=== PATIENT | female | born 1930 | race Caucasian/White ===

== ENCOUNTER 2016-09-27 17:19 | Inpatient (IN) | payer MEDICARE ==
[~2016-09-27] VITALS: Ht 162.6 cm; Wt 56.4 kg
[2016-09-27] MEDS ORDERED: SODIUM CHLORIDE 0.9% 1,000 ML ONE (18:43)
[2016-09-27] MEDS ORDERED: ACETAMINOPHEN 325 MG TAB PO PRN (21:05)
[2016-09-27] MEDS ORDERED: MORPHINE 4 MG/ML SYR IV PRN (21:05)
[2016-09-27] MEDS ORDERED: ALU/MAG/SIM 30 ML UDC PO PRN (21:05)
[2016-09-27] MEDS ORDERED: BISACODYL EC 5 MG TAB PO PRN (21:05)
[2016-09-27] MEDS ORDERED: MAG HYDROX 30 ML UDC PO PRN (21:05)
[2016-09-27] MEDS ORDERED: SALINE FLUSH 10 ML FLUSH PRN (21:05)
[2016-09-27] MEDS ORDERED: AZITHROMYCIN 500 MG VIAL IV ONE (21:16)
[2016-09-27] MEDS ORDERED: SODIUM CHLORIDE 0.9% 250 ML IV ONE (21:17)
[2016-09-27] MEDS ORDERED: CEFTRIAXONE 1 GM VIAL ONE (21:17)
[2016-09-27] MEDS ORDERED: SODIUM CHLORIDE 0.9% 100 ML IV ONE (21:17)
[2016-09-27 22:35] VITALS: BP_SYST 119; RESP 18; TEMP 97.6; BMI 21.3
[2016-09-27] MEDS: ONDANSETRON 4 MG VIAL IV PRN (22:39)
[2016-09-27] MEDS: SODIUM CHLORIDE 0.9% 1,000 ML IV SCH (22:46)
[2016-09-27] MEDS: LEVOFLOXACIN 750 MG/150 ML 150 ML IV SCH (23:50)
[2016-09-27 23:59] VITALS: RESP 18
[2016-09-28 03:40] VITALS: BP_SYST 100; RESP 16; TEMP 97.8
[2016-09-28] MEDS: ONDANSETRON 4 MG VIAL IV PRN ×2 (04:34→10:39)
[2016-09-28] MEDS: SODIUM CHLORIDE 0.9% FLUSH BAG 500 ML IV SCH ×2 (05:08)
[2016-09-28] MEDS: SALINE FLUSH 10 ML FLUSH SCH ×2 (08:00→20:00)
[2016-09-28] MEDS: ENOXAPARIN 40 MG/0.4 ML SYR SUBQ SCH (08:07)
[2016-09-28] MEDS: FAMOTIDINE 20 MG INJ IV SCH ×2 (08:07→20:40)
[2016-09-28] MEDS: METOPROLOL TART 25 MG TAB PO SCH (11:10)
[2016-09-28 11:58] VITALS: BP_SYST 144; RESP 16; TEMP 97.7
[2016-09-28] MEDS: DAKIN'S 0.0625% 480 ML TOPICAL SCH (14:29)
[2016-09-28] MEDS: COLLAGENASE OINT 30 GM TOPICAL SCH (14:30)
[2016-09-28 15:00] VITALS: BP_SYST 124; RESP 16; TEMP 98.4
[2016-09-28 19:41] VITALS: BP_SYST 125; RESP 18; TEMP 98.5
[2016-09-28 22:36] VITALS: BP_SYST 119; RESP 18; TEMP 98.3
[2016-09-28] MEDS: SODIUM CHLORIDE 0.9% 1,000 ML IV SCH (23:25)
[2016-09-29 02:39] VITALS: BP_SYST 142; RESP 18; TEMP 98.1
[2016-09-29] MEDS: SODIUM CHLORIDE 0.9% FLUSH BAG 500 ML IV SCH ×2 (06:00)
[2016-09-29 07:23] VITALS: BP_SYST 147; RESP 18; TEMP 98.1
[2016-09-29] MEDS: SALINE FLUSH 10 ML FLUSH SCH ×2 (07:59→20:00)
[2016-09-29] MEDS: ENOXAPARIN 40 MG/0.4 ML SYR SUBQ SCH (08:00)
[2016-09-29] MEDS: METOPROLOL TART 25 MG TAB PO SCH (08:06)
[2016-09-29] MEDS: FAMOTIDINE 20 MG INJ IV SCH ×2 (08:07→21:23)
[2016-09-29] MEDS: SODIUM CHLORIDE 0.9% 1,000 ML IV SCH ×2 (10:08→21:22)
[2016-09-29 11:11] VITALS: BP_SYST 122; RESP 18; TEMP 98.6
[2016-09-29 15:28] VITALS: BP_SYST 150; RESP 20; TEMP 98.1
[2016-09-29] MEDS: COLLAGENASE OINT 30 GM TOPICAL SCH (17:59)
[2016-09-29] MEDS: DAKIN'S 0.0625% 480 ML TOPICAL SCH (18:01)
[2016-09-29 19:51] VITALS: BP_SYST 125; RESP 20; TEMP 97.3
[2016-09-29] MEDS: LEVOFLOXACIN 750 MG/150 ML 150 ML IV SCH (21:23)
[2016-09-29 23:13] VITALS: BP_SYST 105; RESP 20; TEMP 98.7
[2016-09-30 03:54] VITALS: BP_SYST 140; RESP 20; TEMP 97.3
[2016-09-30] MEDS: SODIUM CHLORIDE 0.9% FLUSH BAG 500 ML IV SCH ×2 (04:44)
[2016-09-30 07:00] VITALS: BP_SYST 120; RESP 16; TEMP 98.5
[2016-09-30] MEDS: SALINE FLUSH 10 ML FLUSH SCH ×2 (09:18→20:02)
[2016-09-30] MEDS: FAMOTIDINE 20 MG INJ IV SCH ×2 (09:24→20:02)
[2016-09-30] MEDS: METOPROLOL TART 25 MG TAB PO SCH (09:24)
[2016-09-30] MEDS: ENOXAPARIN 40 MG/0.4 ML SYR SUBQ SCH (09:25)
[2016-09-30] MEDS: APIXABAN 5 MG TAB PO SCH ×2 (10:45→20:02)
[2016-09-30 11:00] VITALS: BP_SYST 110; RESP 18; TEMP 97.7
[2016-09-30] MEDS: DONEPEZIL 10 MG TABLET PO SCH (11:22)
[2016-09-30] MEDS: Furosemide 20 MG TAB PO SCH (11:22)
[2016-09-30] MEDS: KCL CR 8 MEQ TAB PO SCH (11:22)
[2016-09-30 15:00] VITALS: BP_SYST 132; RESP 18; TEMP 98
[2016-09-30] MEDS: LEVOFLOXACIN 750 MG/150 ML 150 ML IV SCH (15:26)
[2016-09-30] MEDS: COLLAGENASE OINT 30 GM TOPICAL SCH (16:30)
[2016-09-30] MEDS: DAKIN'S 0.0625% 480 ML TOPICAL SCH (16:30)
[2016-09-30 19:25] VITALS: BP_SYST 123; RESP 16; TEMP 97.5
[2016-09-30] MEDS: PRAVASTATIN 20 MG TAB PO SCH (20:02)
[2016-09-30 22:45] VITALS: BP_SYST 119; RESP 18; TEMP 98.6
[2016-10-01 03:28] VITALS: BP_SYST 130; RESP 16; TEMP 97.7
[2016-10-01] MEDS: SODIUM CHLORIDE 0.9% FLUSH BAG 500 ML IV SCH ×3 (05:27→05:52)
[2016-10-01 07:30] VITALS: BP_SYST 111; RESP 24; TEMP 97.9
[2016-10-01] MEDS: DONEPEZIL 10 MG TABLET PO SCH (08:45)
[2016-10-01] MEDS: SALINE FLUSH 10 ML FLUSH SCH ×2 (08:45→20:48)
[2016-10-01] MEDS: METOPROLOL TART 25 MG TAB PO SCH (08:45)
[2016-10-01] MEDS: Furosemide 20 MG TAB PO SCH (08:45)
[2016-10-01] MEDS: APIXABAN 5 MG TAB PO SCH ×2 (08:45→20:48)
[2016-10-01] MEDS: KCL CR 8 MEQ TAB PO SCH (08:45)
[2016-10-01] MEDS: FAMOTIDINE 20 MG INJ IV SCH ×2 (08:45→20:48)
[2016-10-01] MEDS: LEVOFLOXACIN 750 MG/150 ML 150 ML IV SCH (08:46)
[2016-10-01] MEDS: COLLAGENASE OINT 30 GM TOPICAL SCH (08:47)
[2016-10-01] MEDS: DAKIN'S 0.0625% 480 ML TOPICAL SCH (08:47)
[2016-10-01 11:40] VITALS: BP_SYST 93; RESP 22; TEMP 97.9
[2016-10-01 19:43] VITALS: BP_SYST 120; RESP 18; TEMP 97.9
[2016-10-01] MEDS: PRAVASTATIN 20 MG TAB PO SCH (20:48)
[2016-10-01] MEDS: MORPHINE 2 MG/ML SYR IV PRN (22:03)
[2016-10-01 22:51] VITALS: BP_SYST 96; RESP 16; TEMP 98.4
[2016-10-02 04:00] VITALS: BP_SYST 108; RESP 18; TEMP 98.2
[2016-10-02] MEDS: SODIUM CHLORIDE 0.9% FLUSH BAG 500 ML IV SCH ×2 (05:31)
[2016-10-02 07:00] VITALS: BP_SYST 113; RESP 18; TEMP 97.2
[2016-10-02] MEDS: LEVOFLOXACIN 750 MG/150 ML 150 ML IV SCH (10:25)
[2016-10-02] MEDS: SALINE FLUSH 10 ML FLUSH SCH ×2 (10:26→19:29)
[2016-10-02] MEDS: METOPROLOL TART 25 MG TAB PO SCH (10:26)
[2016-10-02] MEDS: DONEPEZIL 10 MG TABLET PO SCH (10:26)
[2016-10-02] MEDS: Furosemide 20 MG TAB PO SCH (10:26)
[2016-10-02] MEDS: KCL CR 8 MEQ TAB PO SCH (10:26)
[2016-10-02 11:00] VITALS: BP_SYST 95; RESP 16; TEMP 95.4
[2016-10-02 15:00] VITALS: BP_SYST 109; RESP 16
[2016-10-02] MEDS: COLLAGENASE OINT 30 GM TOPICAL SCH (18:41)
[2016-10-02] MEDS: DAKIN'S 0.0625% 480 ML TOPICAL SCH (18:41)
[2016-10-02 19:57] VITALS: BP_SYST 136; RESP 18; TEMP 97.3
[2016-10-02] MEDS: PRAVASTATIN 20 MG TAB PO SCH (21:22)
[2016-10-02] MEDS: FAMOTIDINE 20 MG TAB PO SCH (21:22)
[2016-10-02] MEDS: APIXABAN 2.5 MG TAB PO SCH (21:24)
[2016-10-02 23:08] VITALS: BP_SYST 130; RESP 18; TEMP 98.3
[2016-10-03] VITALS (8 sets, daily range): BP systolic 91–105; RESP 16–20; TEMP 97.3–98.4
[2016-10-03] MEDS ORDERED: ALBUMIN HUMAN 25GM (25%) 100 ML IV ONE (04:25)
[2016-10-03] MEDS: SODIUM CHLORIDE 0.9% FLUSH BAG 500 ML IV SCH ×2 (05:48)
[2016-10-03] MEDS: SALINE FLUSH 10 ML FLUSH SCH ×2 (09:51→21:35)
[2016-10-03] MEDS: KCL CR 8 MEQ TAB PO SCH (09:52)
[2016-10-03] MEDS: Furosemide 20 MG TAB PO SCH (09:52)
[2016-10-03] MEDS: METOPROLOL TART 25 MG TAB PO SCH ×2 (09:52→18:21)
[2016-10-03] MEDS: LEVOFLOXACIN 750 MG/150 ML 150 ML IV SCH (09:52)
[2016-10-03] MEDS: APIXABAN 2.5 MG TAB PO SCH ×3 (09:52→21:35)
[2016-10-03] MEDS: DONEPEZIL 10 MG TABLET PO SCH (09:52)
[2016-10-03] MEDS: DAKIN'S 0.0625% 480 ML TOPICAL SCH (18:19)
[2016-10-03] MEDS: COLLAGENASE OINT 30 GM TOPICAL SCH (18:20)
[2016-10-03] MEDS: TAMSULOSIN 0.4 MG CAP PO SCH ×2 (21:00→21:34)
[2016-10-03] MEDS: FAMOTIDINE 20 MG TAB PO SCH ×2 (21:00→21:34)
[2016-10-03] MEDS: PRAVASTATIN 20 MG TAB PO SCH ×2 (21:00→21:35)
[2016-10-04 04:37] VITALS: BP_SYST 105; RESP 20; TEMP 97.6
[2016-10-04] MEDS: SODIUM CHLORIDE 0.9% FLUSH BAG 500 ML IV SCH ×2 (05:06→05:21)
[2016-10-04] MEDS: BISACODYL 10 MG SUPP RECTAL PRN (06:56)
[2016-10-04 07:17] VITALS: BP_SYST 95; RESP 22; TEMP 97.6
[2016-10-04] MEDS: SALINE FLUSH 10 ML FLUSH SCH ×2 (08:39→20:00)
[2016-10-04] MEDS: Furosemide 20 MG TAB PO SCH (08:40)
[2016-10-04] MEDS: DONEPEZIL 10 MG TABLET PO SCH (08:44)
[2016-10-04] MEDS: APIXABAN 2.5 MG TAB PO SCH ×2 (08:44→20:07)
[2016-10-04] MEDS: DAKIN'S 0.0625% 480 ML TOPICAL SCH (08:45)
[2016-10-04] MEDS: METOPROLOL TART 25 MG TAB PO SCH ×2 (08:45→17:00)
[2016-10-04] MEDS: KCL CR 8 MEQ TAB PO SCH (08:45)
[2016-10-04] MEDS: COLLAGENASE OINT 30 GM TOPICAL SCH (08:45)
[2016-10-04 11:16] VITALS: BP_SYST 93; RESP 28; TEMP 97
[2016-10-04] MEDS: ONDANSETRON 4 MG VIAL IV PRN (11:23)
[2016-10-04] MEDS ORDERED: HALOPERIDOL 5 MG/ML VIAL IM PRN (11:35)
[2016-10-04] MEDS ORDERED: LEVOFLOXACIN 750 MG/150 ML 150 ML IV SCH (11:45)
[2016-10-04] MEDS ORDERED: LACT RINGERS 500 ML IV ONE (12:15)
[2016-10-04] MEDS: LABETALOL 100 MG/20 ML VIAL IV PUSH PRN ×3 (12:20→20:52)
[2016-10-04] MEDS ORDERED: PHARMACY TO DOSE ZOSYN IV SCH (13:30)
[2016-10-04] MEDS ORDERED: PHARMACY TO DOSE VANCOMYCIN IV SCH (13:30)
[2016-10-04] MEDS ORDERED: VANCOMYCIN 1,250 MG in SODIUM CHLORIDE 0.9% 250 ML IV ONE (14:05)
[2016-10-04] MEDS ORDERED: PHARMACY TO DOSE CEFEPIME IV SCH (15:20)
[2016-10-04] MEDS ORDERED: CEFEPIME 2000 MG/100 ML D5W 100 ML IV SCH (16:00)
[2016-10-04] MEDS: OMNIPAQUE 240 MG/ML, 50 ML PO SCH ×2 (16:30→18:21)
[2016-10-04 16:37] VITALS: BP_SYST 111; RESP 28; TEMP 96.8
[2016-10-04 19:55] VITALS: BP_SYST 119; RESP 14; TEMP 98.4
[2016-10-04] MEDS: MEGESTROL 800 MG/20 ML UDC PO SCH (20:07)
[2016-10-04] MEDS: TAMSULOSIN 0.4 MG CAP PO SCH (20:07)
[2016-10-04] MEDS: PRAVASTATIN 20 MG TAB PO SCH (20:07)
[2016-10-04] MEDS: Dronabinol 2.5 MG CAP PO SCH (20:07)
[2016-10-04] MEDS: FAMOTIDINE 20 MG TAB PO SCH (20:07)
[2016-10-05] VITALS (7 sets, daily range): BP systolic 94–146; RESP 16–22; TEMP 97.4–98.1
[2016-10-05] MEDS: MORPHINE 2 MG/ML SYR IV PRN (00:47)
[2016-10-05] MEDS: ONDANSETRON 4 MG VIAL IV PRN (01:05)
[2016-10-05] MEDS: BISACODYL 10 MG SUPP RECTAL PRN (03:24)
[2016-10-05] MEDS: LABETALOL 100 MG/20 ML VIAL IV PUSH PRN ×2 (04:45→20:15)
[2016-10-05] MEDS: SODIUM CHLORIDE 0.9% FLUSH BAG 500 ML IV SCH ×2 (05:02→06:31)
[2016-10-05] MEDS: DONEPEZIL 10 MG TABLET PO SCH (09:00)
[2016-10-05] MEDS: APIXABAN 2.5 MG TAB PO SCH ×2 (09:00→20:17)
[2016-10-05] MEDS: Furosemide 20 MG TAB PO SCH (09:00)
[2016-10-05] MEDS: METOPROLOL TART 25 MG TAB PO SCH ×2 (09:00→17:00)
[2016-10-05] MEDS: KCL CR 8 MEQ TAB PO SCH (09:00)
[2016-10-05] MEDS: MEGESTROL 800 MG/20 ML UDC PO SCH ×2 (09:00→20:18)
[2016-10-05] MEDS: Dronabinol 2.5 MG CAP PO SCH ×2 (09:00→20:18)
[2016-10-05] MEDS: COLLAGENASE OINT 30 GM TOPICAL SCH (09:00)
[2016-10-05] MEDS: SALINE FLUSH 10 ML FLUSH SCH ×2 (10:51→20:00)
[2016-10-05] MEDS: DAKIN'S 0.0625% 480 ML TOPICAL SCH (14:15)
[2016-10-05] MEDS: APIXABAN 5 MG TAB PO SCH (14:47)
[2016-10-05] MEDS: FAMOTIDINE 20 MG INJ IV SCH (14:48)
[2016-10-05] MEDS ORDERED: BISACODYL 10 MG SUPP RECTAL ONE (15:15)
[2016-10-05] MEDS: LACT RINGERS 1,000 ML IV SCH ×2 (15:50→23:31)
[2016-10-05] MEDS: METRONIDAZOLE 500MG/100ML 100 ML IV SCH ×2 (15:51→23:29)
[2016-10-05] MEDS: TAMSULOSIN 0.4 MG CAP PO SCH (20:17)
[2016-10-05] MEDS: PRAVASTATIN 20 MG TAB PO SCH (20:18)
[2016-10-05] MEDS: FAMOTIDINE 20 MG TAB PO SCH (20:18)
[2016-10-06 03:08] VITALS: BP_SYST 113; RESP 18; TEMP 98.7
[2016-10-06] MEDS: SODIUM CHLORIDE 0.9% FLUSH BAG 500 ML IV SCH ×2 (04:02)
[2016-10-06 07:32] VITALS: BP_SYST 130; RESP 16; TEMP 97.2
[2016-10-06] MEDS: DONEPEZIL 10 MG TABLET PO SCH (07:32)
[2016-10-06] MEDS: SALINE FLUSH 10 ML FLUSH SCH ×2 (07:32→19:52)
[2016-10-06] MEDS: APIXABAN 2.5 MG TAB PO SCH ×2 (07:32→21:00)
[2016-10-06] MEDS: KCL CR 8 MEQ TAB PO SCH (07:33)
[2016-10-06] MEDS: Dronabinol 2.5 MG CAP PO SCH ×2 (07:33→21:00)
[2016-10-06] MEDS: METOPROLOL TART 25 MG TAB PO SCH ×2 (07:33→17:00)
[2016-10-06] MEDS: MEGESTROL 800 MG/20 ML UDC PO SCH ×2 (07:33→21:00)
[2016-10-06] MEDS: METRONIDAZOLE 500MG/100ML 100 ML IV SCH ×2 (08:02→15:33)
[2016-10-06] MEDS: LACT RINGERS 1,000 ML IV SCH ×2 (08:04→16:43)
[2016-10-06] MEDS: LABETALOL 100 MG/20 ML VIAL IV PUSH PRN (10:06)
[2016-10-06 11:37] VITALS: BP_SYST 106; RESP 16; TEMP 97.6
[2016-10-06 15:30] VITALS: BP_SYST 108; RESP 16; TEMP 97.5
[2016-10-06 19:12] VITALS: BP_SYST 118; RESP 16; TEMP 98.2
[2016-10-06] MEDS: MORPHINE 2 MG/ML SYR IV PRN (20:15)
[2016-10-06] MEDS: ONDANSETRON 4 MG VIAL IV PRN (20:15)
[2016-10-06] MEDS: PRAVASTATIN 20 MG TAB PO SCH (21:00)
[2016-10-06] MEDS: TAMSULOSIN 0.4 MG CAP PO SCH (21:00)
[2016-10-06] MEDS: FAMOTIDINE 20 MG TAB PO SCH (21:00)
[2016-10-06 23:38] VITALS: BP_SYST 129; RESP 16; TEMP 97.8
[2016-10-07] MEDS: METRONIDAZOLE 500MG/100ML 100 ML IV SCH ×3 (00:36→15:10)
[2016-10-07] MEDS: LACT RINGERS 1,000 ML IV SCH (00:38)
[2016-10-07 03:24] VITALS: BP_SYST 124; RESP 16; TEMP 98.1
[2016-10-07] MEDS: SODIUM CHLORIDE 0.9% FLUSH BAG 500 ML IV SCH ×2 (06:00)
[2016-10-07] MEDS: SALINE FLUSH 10 ML FLUSH SCH ×2 (07:10→20:00)
[2016-10-07] MEDS: METOPROLOL TART 25 MG TAB PO SCH ×2 (07:52→16:50)
[2016-10-07] MEDS: Dronabinol 2.5 MG CAP PO SCH ×2 (07:52→21:00)
[2016-10-07] MEDS: DONEPEZIL 10 MG TABLET PO SCH (07:52)
[2016-10-07] MEDS: MEGESTROL 800 MG/20 ML UDC PO SCH ×2 (07:52→21:00)
[2016-10-07] MEDS: KCL CR 8 MEQ TAB PO SCH (07:52)
[2016-10-07] MEDS: APIXABAN 2.5 MG TAB PO SCH ×2 (07:52→21:00)
[2016-10-07 07:57] VITALS: BP_SYST 111; RESP 18; TEMP 97.3
[2016-10-07] MEDS ORDERED: D5-1/2-NS W/KCL 20MEQ/L 1,000 ML IV SCH ×2 (09:50→17:25)
[2016-10-07 11:29] VITALS: BP_SYST 114; RESP 20; TEMP 97.2
[2016-10-07 15:54] VITALS: BP_SYST 116; RESP 18
[2016-10-07] MEDS ORDERED: DEXTROSE 50% SYRINGE 50 ML IV PRN ×2 (16:50→17:25)
[2016-10-07] MEDS ORDERED: GLUCAGON 1 MG VIAL IV PRN (16:50)
[2016-10-07] MEDS ORDERED: PHARMACY TO DOSE IV SCH (16:50)
[2016-10-07] MEDS ORDERED: GLUCAGON 1 MG VIAL IM PRN (17:25)
[2016-10-07] MEDS ORDERED: CALCIUM IV SCH ×5 (19:00)
[2016-10-07] MEDS ORDERED: FAT EMULSION 20% 500 ML IV SCH (19:00)
[2016-10-07] MEDS ORDERED: [UNRECOGNIZED DRUG - OTHER] IV SCH ×5 (19:00)
[2016-10-07] MEDS ORDERED: MAGNESIUM IV SCH ×5 (19:00)
[2016-10-07] MEDS ORDERED: POTASSIUM IV SCH ×5 (19:00)
[2016-10-07] MEDS ORDERED: SODIUM IV SCH ×5 (19:00)
[2016-10-07] MEDS ORDERED: ACETATE IV SCH ×5 (19:00)
[2016-10-07 19:43] VITALS: BP_SYST 120; RESP 16; TEMP 97.4
[2016-10-07] MEDS: PRAVASTATIN 20 MG TAB PO SCH (21:00)
[2016-10-07] MEDS: TAMSULOSIN 0.4 MG CAP PO SCH (21:00)
[2016-10-07] MEDS: FAMOTIDINE 20 MG TAB PO SCH (21:00)
[2016-10-08 00:12] VITALS: BP_SYST 118; RESP 18; TEMP 97.5
[2016-10-08] MEDS: METRONIDAZOLE 500MG/100ML 100 ML IV SCH ×3 (00:38→15:48)
[2016-10-08 04:20] VITALS: BP_SYST 124; RESP 18; TEMP 97.7
[2016-10-08] MEDS: MORPHINE 2 MG/ML SYR IV PRN ×2 (04:26→11:11)
[2016-10-08] MEDS: SODIUM CHLORIDE 0.9% FLUSH BAG 500 ML IV SCH ×2 (06:00→06:38)
[2016-10-08 07:23] VITALS: BP_SYST 120; RESP 18; TEMP 98.2
[2016-10-08] MEDS: SALINE FLUSH 10 ML FLUSH SCH (08:00)
[2016-10-08] MEDS: METOPROLOL TART 25 MG TAB PO SCH (08:12)
[2016-10-08] MEDS: Dronabinol 2.5 MG CAP PO SCH (08:12)
[2016-10-08] MEDS: MEGESTROL 800 MG/20 ML UDC PO SCH (08:12)
[2016-10-08] MEDS: KCL CR 8 MEQ TAB PO SCH (08:12)
[2016-10-08] MEDS: DONEPEZIL 10 MG TABLET PO SCH (08:12)
[2016-10-08] MEDS: APIXABAN 2.5 MG TAB PO SCH (08:12)
[2016-10-08 08:18] VITALS: Ht 162.6 cm; Wt 56.4 kg
[2016-10-08] MEDS ORDERED: D5-1/2-NS W/KCL 40MEQ/L 1,000 ML IV SCH (08:50)
[2016-10-08 11:37] VITALS: BP_SYST 113; RESP 18; TEMP 97.2
[2016-10-08 16:10] VITALS: BP_SYST 113; RESP 18; TEMP 97.2
== END 2016-10-08 17:31 | DRG 871 ==
LOC: ENRESERVTM → ENRESERVDT → ER 17:19 → EDUNIT# 21:04 → ENPENDDIS 21:04 → EMR 21:04 → 2NO 21:50
PROVIDERS: ADMIT Family Medicine; ATTEND Family Medicine
DX: A41.9 Sepsis, unspecified organism (principal); L89.153 Pressure ulcer of sacral region, stage 3; K56.7 Ileus, unspecified; E87.2 Acidosis; N17.9 Acute kidney failure, unspecified; E87.0 Hyperosmolality and hypernatremia; E86.0 Dehydration; F03.90 Unspecified dementia, unspecified severity, without behavioral disturbance, psychotic disturbance, mood disturbance, and anxiety; I10 Essential (primary) hypertension; E78.00 Pure hypercholesterolemia, unspecified; E05.90 Thyrotoxicosis, unspecified without thyrotoxic crisis or storm; I35.0 Nonrheumatic aortic (valve) stenosis; I71.4 Abdominal aortic aneurysm, without rupture; M06.9 Rheumatoid arthritis, unspecified; Z86.718 Personal history of other venous thrombosis and embolism; Z79.01 Long term (current) use of anticoagulants
CPT/HCPCS: 71010; 71250; 74000; 74176; 76705; 80048; 80053; 80202; 81001; 83605; 83735; 83880; 84100; 84145; 84478; 85025; 87040; 87077; 87186; 93005; 94762; 94799; 96361; 96365; 96375; 99223; 99233; 99239